=== PATIENT | male | born 1990 | race Caucasian/White ===

== ENCOUNTER → 2023-07-07 13:38 | Outpatient (BNVA) | payer BC, SELFPAY | PROVIDERS: PCP Nurse Practitioner Family; Visit Provider Nurse Practitioner Family | DX: I10 Essential (primary) hypertension (principal); R22.0 Localized swelling, mass and lump, head | CPT/HCPCS: 80053; 80061; 84443; 85025 ==

== ENCOUNTER 2023-07-27 10:03 | Outpatient (CLI) | payer BC, SELFPAY ==
--- NOTE | 2023-07-27 09:30 | US_ITS ---
WS: [id number] ULTRASOUND SOFT TISSUES RIGHT submandibular region. HISTORY: R22.0 - Localized swelling, mass and lump, head COMPARISON: None available. TECHNIQUE: 2-D and color Doppler imaging is submitted. Ultrasound is directed to the palpable abnormality which is near the LEFT mandible. There is a hypoec hoic mass with a few small cystic areas scattered throughout. Mass measures 4.7 x 2.0 x 4.4 cm. There is no increased vascularity. There is displacement of the adjacent fascial planes. No additional abn ormality noted LEFT neck. US/US soft tissue head neck [id number] IMPRESSION: Solid nonvascular mass in the LEFT neck corresponds to the palpable abnormality . Very nonspecific by imaging. Recommend follow-up neck CT with IV contrast. Th is does not appear to be a lymph node or lipoma.
== END 2023-07-27 10:04 | disposition home or self-care (01) ==
LOC: RAD 10:03
PROVIDERS: PCP Nurse Practitioner Family; Visit Provider Nurse Practitioner Family
DX: R22.0 Localized swelling, mass and lump, head (principal)
CPT/HCPCS: 76536

== ENCOUNTER 2023-08-10 14:00 | Outpatient (CLI) | payer BC, SELFPAY ==
--- NOTE | 2023-08-10 14:30 | CTR_ITS ---
PROCEDURE INFORMATION: Exam: CT Neck With Contrast Exam date and time: 08/10/2023 2:34 PM Age: 32 years old Clinical indication: Mass, lump, or swelling in neck; Patient HX: Lump on left side neck area-bb, more than 5 years; Additional info: Localized swelling, mass, and lump neck TECHNIQUE: Imaging protocol: Computed tomography of the neck with contrast. Radiation optimization: All CT scans at this facility use at least one of these dose optimization techniques: automated exposure control; mA and/or kV adjustment per patient size (includes targeted exams where dose is matched to clinical indication); or iterative reconstruction. Contrast material: OMNI 350; Contrast volume: 100 ml; Contrast route: INTRAVENOUS (IV); COMPARISON: US soft tissue head neck [id number] 07/27/2023 10:12 AM RADIATION DOSE METRICS: Total DLP (mGy-cm): 137.14 FINDINGS: Salivary glands: See Bones/joints finding. Pharynx: Unremarkable. No significant tonsillar enlargement. Prevertebral and retropharyngeal spaces: Unremarkable. Larynx: Unremarkable. Epiglottis is normal. Thyroid: Normal. No enlarged or calcified nodules. Trachea: Visualized trachea is unremarkable. Lungs: Unremarkable as visualized. Pleural spaces: No solid mass or adenopathy pleural Lymph nodes: See Pleural spaces finding. Bones/joints: There is a 4.0 x 3.0 cm well in capsulated cystic appearing structure extending from near the angle of the jaw inferiorly on the left side. It is slightly deforming the submandibular gland. Its site of origin is uncertain. Is predominantly subcutaneous in location. It is avascular. Soft tissues: See Bones/joints finding. CT/CT neck w con* [id number] IMPRESSION: Large superficial simple appearing cystic lesion. ENT consultation recommended.
[2023-08-10] MEDS: iohexol 350 mg/mL 500 mL Btl (per mL) IV (14:43)
== END 2023-08-10 14:11 | disposition home or self-care (01) ==
LOC: RAD 14:11
PROVIDERS: PCP Nurse Practitioner Family; Visit Provider Nurse Practitioner Family
DX: R22.1 Localized swelling, mass and lump, neck (principal)
CPT/HCPCS: 70491; Q9967